=== PATIENT | female | born 1970 | race Caucasian/White ===

== ENCOUNTER → 2017-10-03 | Outpatient (CLI) | payer OTHER | LOC: M RAD 11:44 | DX: Z12.31 Encounter for screening mammogram for malignant neoplasm of breast (principal); M54.5 Low back pain; M25.561 Pain in right knee; M25.522 Pain in left elbow | CPT/HCPCS: 72114 ==

== ENCOUNTER 2017-12-19 10:38 | Outpatient (RCR) | payer OTHER | END 2018-01-13 | LOC: M PT 10:38 | DX: Z51.89 Encounter for other specified aftercare (principal); M54.5 Low back pain | CPT/HCPCS: 97162 ==

== ENCOUNTER → 2017-12-28 | Outpatient (CLI) | payer MEDICAID, OTHER, SELFPAY | LOC: M CARPUL 15:04 | DX: R05 Cough (principal) | CPT/HCPCS: 94060 ==